=== PATIENT | male | born 1975 | race Asian ===

== ENCOUNTER 2023-03-11 07:05 | Emergency (ER) | payer OTHER ==
[~2023-03-11] VITALS: Ht 175.3 cm; Wt 113.4 kg
[2023-03-11] VITALS (12 sets, daily range): BP systolic 148–187; BP diastolic 91–110; TEMP 97.5
[~2023-03-11 07:05] MED LIST: AMLO2.5T PO; CLONIDINE0.2 MG PO; GLIM4TAB PO; LISI20TA24 PO; METFTAB PO; PROM25TA52 PO
[2023-03-11 09:18] LABS: PLATELET COUNT 282 K/uL (142-355)
[2023-03-11 09:37] LABS: POTASSIUM 4.1 mmol/L (3.6-5.2)
== END 2023-03-11 18:05 | disposition short-term general hospital (02) ==
LOC: ED 07:05 → MED/SURG 10:29 → ED 10:29 → MED/SURG 10:29 → ED 18:05
PROVIDERS: Family Medicine
DX: I16.0 Hypertensive urgency (principal); N28.9 Disorder of kidney and ureter, unspecified; Z91.199 Patient's noncompliance with other medical treatment and regimen due to unspecified reason; E66.9 Obesity, unspecified
CPT/HCPCS: 80053; 80307; 81000; 82150; 83690; 85027; 96374; 96375; 96376; 99284; J0360; J1885; J2060

== ENCOUNTER 2023-04-29 15:35 | Outpatient (CLI) | payer OTHER | END 2023-04-29 22:34 | disposition home or self-care (01) | LOC: CT 15:35 | PROVIDERS: ATTEND Nurse Practitioner Family | DX: R10.32 Left lower quadrant pain (principal) ==